=== PATIENT | male | born 2000 | race American Indian/Alaskan Native ===

== ENCOUNTER 2018-08-19 09:18 | Emergency (ER) | payer SELFPAY ==
[2018-08-19 09:30] VITALS: BP 119/62
--- NOTE | 2018-08-19 10:05 | Emergency Department Report ---
ED Headache HPI - General Chief Complaint: Headache Stated Complaint: HEADACHE Time Seen by Provider: 08/19/18 09:40 Source: patient Exam Limitations: no limitations - History of Present Illness Initial Comments: This is a 18-year-old female who presents with congestion and headache for one week. Patient states he is currently taken sinus pills which has improved symptoms. Patient states currently he is feeling okay which was significant. note to return to work. Timing/Duration: 4-6 hours Quality: throbbing Head Injury Location: temporal Recent Head Trauma: no recent headache/trauma Modifying Factors: improves with: medication Associated Symptoms: nasal congestion. denies: confusion, fatigue, facial pain, fever/chills, flushing, loss of consciousness, nausea/vomiting, nasal drainage, numbness in legs/feet, rash, seizures, sinus infection, stiff neck, vision changes, weakness Allergies/Adverse Reactions: Allergies No Known Allergies Allergy (Unverified 08/19/18 09:20) ED Review of Systems ROS: Stated complaint: HEADACHE Other details as noted in HPI Constitutional: denies: chills, fever ENT: congestion Respiratory: denies: cough, shortness of breath, wheezing Cardiovascular: denies: chest pain, palpitations Gastrointestinal: denies: abdominal pain, nausea, diarrhea Skin: denies: rash, lesions Neurological: headache. denies: weakness, paresthesias Psychiatric: denies: anxiety, depression ED Past Medical Hx - Social History Smoking Status: Current Every Day Smoker Substance Use Type: Alcohol, Marijuana ED Physical Exam - General Limitations: No Limitations General appearance: alert, in no apparent distress - ENT ENT exam: Present: mucous membranes moist - Respiratory Respiratory exam: Present: normal lung sounds bilaterally. Absent: respiratory distress - Cardiovascular Cardiovascular Exam: Present: regular rate, normal rhythm. Absent: systolic murmur, diastolic murmur, rubs, gallop - GI/Abdominal GI/Abdominal exam: Present: soft, normal bowel sounds - Neurological Exam Neurological exam: Present: alert, oriented X3 - Psychiatric Psychiatric exam: Present: normal affect, normal mood - Skin Skin exam: Present: warm, dry, intact, normal color. Absent: rash ED Course Vital Signs 08/19/18 09:27 Temperature 97.7 F Pulse Rate 56 L Respiratory 16 Rate Blood Pressure 119/62 O2 Sat by Pulse 100 Oximetry ED Medical Decision Making - Medical Decision Making This is a 18 y.o. male that presents with headache x 1 week and congestion. Patient is stable and was examined by me. Patient reports a history of he adaches. Patient states headache is now resolved. He reports feeling fine and he just need to get out Dr. copeland to return to work. She'll given care instructions for tension headaches. No further questions noted by the patient. Instructed to return to the emergency room if worsening headache, visual changes, fever, or nausea or vomiting. Return to work tomorrow. Discharged home in stable condition. Follow up with PCP in 24-72 hours. Critical care attestation.: If time is entered above; I have spent that time in minutes in the direct care of this critically ill patient, excluding procedure time. ED Disposition Clinical Impression: Tension headache Disposition: DC- TO HOME OR SELFCARE Is pt being admited?: No Does the pt Need Aspirin: No Condition: Stable Instructions: Acute Headache (ED), Tension Headache (ED) Additional Instructions: Take medication at start of headache. Moderate caffeine intake. Eat at scheduled times or 3 meals a day with snacks. Follow up with primary care provider in 24-72 hours. Referrals: [facility] [Outside] - 3-5 Days [facility] [Outside] - 3-5 Days [facility] [Outside] - 3-5 Days Forms: Work/School Release Form(ED) Time of Disposition: 10:05
== END 2018-08-19 10:11 | disposition home or self-care (01) ==
LOC: ED 09:18
DX: G44.209 Tension-type headache, unspecified, not intractable (principal); F17.200 Nicotine dependence, unspecified, uncomplicated; F12.10 Cannabis abuse, uncomplicated
CPT/HCPCS: 99282